=== PATIENT | male | born 1985 | race Caucasian/White ===

== ENCOUNTER 2020-11-11 10:48 | Outpatient (CLI) | payer OTHER, SELFPAY ==
--- NOTE | 2020-11-11 | EST_ITS ---
Patient Info Name: Neptali Fernando Age: 34 years : 1985 Gender: Male Ht: 72 in Wt: 290 lbs BSA: 2.64 m2 HR: 87 bpm BP: 148 / 81 mmHg Heart Rhythm: Sinus Rhythm Exam Date: 11/11/2020 12:08 PM Exam Location: [facility] Stress Patient Status: Outpatient Admit Date: 11/11/2020 Staff Ordering Physician: Jamar, Yee Marinelli [facility] Attending Provider: JamarYee [facility] Exercise Technologist: Trisha Reilly CT Exercise Physician: Tiara Alexander MD Exam Type: CA stress test treadmill Study Info Indications R06.09 - Other forms of dyspnea A treadmill exercise stress test was performed. Summary 1. Sub maximal stress test with the patient reaching only 82% of his maximal predicted heart rate, but no EKG evidence of ischemia at this level of exercise. 2. Exercise-induced chest pressure suggestive of angina. 3. Poor exercise tolerance; the patient exercised for only 6 minutes 34 seconds. 4. Resting hypertension (148/81) with a hypertensive blood pressure response (195/90 mmHg). 5. Consider further cardiac testing (stress Cardiolite? Echo?) If heart disease is clinically suspected. Protocol: [facility] Stress ECG Details Stage: REST Duration (min): 0 min : 52 sec Speed (mph): 0.0 Grade (%): 0 HR (bpm): 83 SBP (mmHg): 148 DBP (mmHg): 81 METS: --- Stage: REST Duration (min): 5 min : 18 sec Speed (mph): 0.0 Grade (%): 0 HR (bpm): 88 SBP (mmHg): 148 DBP (mmHg): 81 METS: --- Stage: STAGE 1 Duration (min): 1 min : 0 sec Speed (mph): 1.7 Grade (%): 10 HR (bpm): 113 SBP (mmHg): 148 DBP (mmHg): 81 METS: --- Stage: STAGE 1 Duration (min): 2 min : 0 sec Speed (mph): 1.7 Grade (%): 10 HR (bpm): 117 SBP (mmHg): 148 DBP (mmHg): 81 METS: --- Stage: STAGE 1 Duration (min): 3 min : 0 sec Speed (mph): 1.7 Grade (%): 10 HR (bpm): 123 SBP (mmHg): 167 DBP (mmHg): 91 METS: --- Stage: STAGE 2 Duration (min): 1 min : 0 sec Speed (mph): 2.5 Grade (%): 12 HR (bpm): 129 SBP (mmHg): 167 DBP (mmHg): 91 METS: --- Stage: STAGE 2 Duration (min): 2 min : 0 sec Speed (mph): 2.5 Grade (%): 12 HR (bpm): 137 SBP (mmHg): 176 DBP (mmHg): 91 METS: --- Stage: STAGE 2 Duration (min): 3 min : 0 sec Speed (mph): 2.5 Grade (%): 12 HR (bpm): 137 SBP (mmHg): 176 DBP (mmHg): 91 METS: --- Stage: STAGE 3 Duration (min): 0 min : 34 sec Speed (mph): 3.4 Grade (%): 14 HR (bpm): 151 SBP (mmHg): 176 DBP (mmHg): 91 METS: --- Stage: RECOVERY Duration (min): 0 min : 25 sec Speed (mph): 0.0 Grade (%): 0 HR (bpm): 124 SBP (mmHg): 195 DBP (mmHg): 90 METS: --- Stage: RECOVERY Duration (min): 1 min : 25 sec Speed (mph): 0.0 Grade (%): 0 HR (bpm): 103 SBP (mmHg): 195 DBP (mmHg): 90 METS: --- Stage: REC
== END 2020-11-11 10:49 | disposition home or self-care (01) ==
PROVIDERS: PCP Family Medicine; Visit Provider Nurse Practitioner Family
DX: R06.09 Other forms of dyspnea (principal)
CPT/HCPCS: 93017

== ENCOUNTER 2020-11-18 07:40 | Outpatient (CLI) | payer OTHER, SELFPAY ==
--- NOTE | 2020-11-18 | ECHO_ITS ---
Patient Info Name: Neptali Fernando Age: 34 years : 1985 Gender: Male Ht: 72 in Wt: 290 lbs BSA: 2.64 m2 HR: 85 bpm BP: 141 / 101 mmHg Heart Rhythm: Sinus Rhythm Technical Quality: Good Exam Date: 11/18/2020 8:14 AM Exam Location: [facility] Patient Status: Outpatient Admit Date: 11/18/2020 Staff Ordering Physician: Jamar, Yee DANIELSON Line Installer Trolley: Dk Lopez, BRYCE, RT Attending Provider: Jamar, Yee DANIELSON Referring Physician: Jamar WHITNEY; Exam Type: CA echo doppler color flow Study Info Indications I20.9 - Angina pectoris, unspecified Complete two-dimensional, color flow and Doppler transthoracic echocardiogram is performed. Strain analysis performed. Summary 1. Complete two-dimensional, color flow and Doppler transthoracic echocardiogram is performed. 2. LV size is at upper limits of normal, normal wall thickness, normal LV systolic function, ejection fraction 55-60%, normal diastolic function. G LS -18%. No significant valvular abnormality on 2D echo and Doppler. Unable to assess RVSP due to inadequate TR jet velocity. Normal sinus rhythm. Left Ventricle Left ventricular chamber dimension is normal. Left ventricular systolic function is normal, estimated at 55-60%. There is no increased left ventricular wall thickness. The left ventricular diastolic function is normal. Right Ventricle Right ventricular chamber dimension is normal. Right ventricular systolic function is normal. Left Atria Left atrial chamber dimension is normal. Right Atria Right atrial chamber dimension is normal. Aortic Valve The aortic valve is normal. There is no aortic valve stenosis. Pulmonic Valve The pulmonic valve is normal. Mitral Valve The mitral valve has normal leaflets. Tricuspid Valve The tricuspid valve leaflets are normal. There is trace tricuspid valve regurgitation. Pericardium/Pleural The pericardium appears normal. Inferior Vena Cava Normal inferior vena cava with >50% collapse upon inspiration consistent with normal right atrial pressure, 8 mmHg. Aorta The aortic root size at the sinus of Valsalva is normal. Left Ventricular Outflow Tract Name Value Normal LVOT 2D LVOT Diameter 2.1 cm LVOT Doppler LVOT Peak Gradient 3 mmHg LVOT Mean Gradient 2 mmHg LVOT VTI 18 cm LVOT VTI/AV VTI Ratio 0.8 LVOT Stroke Volume 63 ml LVOT CO 5.5 l/min LVOT CI 2.1 l/min/m2 Mitral Valve Name Value Normal MV Doppler MV Decel [place] 353 cm/s2 MV PHT 64 ms MV Area (PHT) 3.4 cm2 4.0-5.0 MV D
== END 2020-11-18 07:41 | disposition home or self-care (01) ==
LOC: ANHCARD 07:43
PROVIDERS: PCP Family Medicine; Visit Provider Nurse Practitioner Family
DX: I20.9 Angina pectoris, unspecified (principal)
CPT/HCPCS: 93306

== ENCOUNTER 2020-12-22 13:39 | Emergency (ER) | payer OTHER, SELFPAY ==
[2020-12-22 13:54] VITALS: BP 145/91; PULSE 100; RESP 16; TEMP 37.1; O2SAT 100
--- NOTE | 2020-12-22 14:10 | ED.SKABFB ---
HPI - Skin/Abscess/Foreign Bdy General Chief complaint: Skin/Abscess/Foreign Body Stated complaint: Rash below stomach Time Seen by Provider: 12/22/20 13:57 Source: patient and RN notes reviewed Mode of arrival: ambulatory Limitations: no limitations History of Present Illness HPI narrative: Patient presents today with a 7 to 10-day history of a severely pruritic rash to the right lower abdomen. Rash began after patient wore a pair of pants that were not laundered after purchasing. Patient has been using hydrocortisone cream which helps slightly with itching, but does not help resolve the rash. MD complaint: rash Related Data Allergies Allergy/AdvReac Type Severity Reaction Status Date / Time No Known Allergies Allergy Verified 12/22/20 14:12 Review of Systems Review of Systems: CONSTITUTIONAL: Denies body aches, fever, chills, or sweats. EYES: Denies visual changes, redness, or discharge. ENT: Denies rhinorrhea, congestion, sore throat, or otalgia. CARDIOVASCULAR: Denies chest pain, palpitations, or edema. RESPIRATORY: Denies cough or dyspnea. GASTROINTESTINAL: Denies abdominal pain, nausea, vomiting, or diarrhea. GENITOURINARY: Denies dysuria or hematuria. SKIN: Denies wounds.+ Pruritic rash MUSCULOSKELETAL: Denies back pain, joint pain, or myalgia. NEUROLOGIC: Denies headache, numbness, tingling, or weakness. PSYCH: Denies depression or anxiety. PMFSH Comments At time of signature, I have reviewed and agree with nursing past medical, surgical, social and family history unless otherwise noted. Please see nursing chart for further information. There is no relevant family history pertinent to the presenting complaint Exam Narrative: GENERAL: Well-appearing, well-nourished, and in no acute distress. HEAD: Normocephalic, atraumatic. EYES: EOMI. No redness or drainage. Conjunctivae normal. ENT: Mucous membranes pink and moist. NECK: Normal AROM. CHEST: No respiratory distress. EXTREMITIES: Normal range of motion. No edema. SKIN: Warm, dry. Capillary refill normal. Normal skin turgor. Erythematous maculopapular rash to the right lower abdomen, extending to the right groin and into the right upper leg. NEURO: No focal deficits. Alert and oriented x3. Gait steady. PSYCH: Normal affect. No signs of depression or anxiety. Course Vital Signs Vital signs: Vital Signs Temperature 98.7 F 12/22/20 13:54 Pulse Rate 100 12/22/20 13:54 Respiratory Rate 16 12/22/20 13:54 Blood Pressure 145/91 H 12/22/20 13:54 Pulse Oximetry 100 12/22/20 13:54 Temperature 98.7 F 12/22/20 13:54 Pulse Rate 100 12/22/20 13:54 Respiratory Rate 16 12/22/20 13:54 Blood Pressure 145/91 H 12/22/20 13:54 Pulse Oximetry 100 12/22/20 13:54 Reviewed. Pt has been instructed to follow up with his PCP regarding his elevated blood pressure today. MDM - Skin/Abscess/Foreign Bdy Differential Diagnosis Differential diagnosis: Likely dermatophytosis, urticaria, cellulitis, eczema, insect bites, impetigo and contact dermatitis Critical Care Time Critical Care Time Critical Care Time: No Discharge Plan Discharge Clinical Impression: Contact dermatitis Qualifiers: Contact dermatitis type: unspecified Contact dermatitis trigger: unspecified trigger Qualified Code(s): L25.9 - Unspecified contact dermatitis, unspecified cause Patient Disposition: Home, Self-Care Condition: Stable Instructions: Contact Dermatitis (DC) Additional Instructions: Please take the prednisone as prescribed, starting tomorrow morning. For itching, take an antihistamine such as Benadryl, Zyrtec, Claritin, or Janeth. You may continue the cortisone for itching as well. Follow-up with your doctor in 1 week if symptoms are not improving. Your blood pressure was elevated above 120/80 today at Urgent Care. This puts you above the threshold for follow up. Please schedule a followup visit with your personal physician as soon as possible
== END 2020-12-22 14:20 | disposition home or self-care (01) ==
PROVIDERS: Emergency Provider Nurse Practitioner; PCP Family Medicine
DX: L25.9 Unspecified contact dermatitis, unspecified cause (principal)
CPT/HCPCS: 99213; G0463

== ENCOUNTER 2024-01-12 19:29 | Emergency (ER) | payer OTHER, SELFPAY ==
[2024-01-12 19:39] VITALS: BP 155/97; PULSE 68; RESP 18; TEMP 36.6; O2SAT 99
--- NOTE | 2024-01-12 19:59 | ED.DENTAL ---
HPI - Dental/Oral General Chief complaint: Dental/Oral Stated complaint: infection in the tooth region Time Seen by Provider: 01/12/24 19:55 Source: patient Mode of arrival: ambulatory Limitations: no limitations History of Present Illness HPI Narrative: Neptali is a 38-year-old male patient presenting to the clinic today with complaints of right 2nd lower jaw dental pain x2 months. He reports that is been intermittent for the past 2 months however over the last 4 days he has had constant pain. No fevers or chills. States that he has tried flossing clean his teeth best he can. Does not have dental insurance and has not been able to get in to see a dentist. Related Data Allergies Allergy/AdvReac Type Severity Reaction Status Date / Time No Known Allergies Allergy Verified 01/12/24 19:44 Review of Systems Review of Systems: Pertinent positives per HPI. Patient denies any fever, chills, rash, headache, visual changes, dizziness, cough, runny nose, sore throat, shortness of breath, chest pain, palpitations, nausea, vomiting, diarrhea, constipation, abdominal pain, or any urinary issues. PMFSH Comments At the time of my signature, I reviewed and agree with the nursing past medical, surgical, social, and family history. There is no relevant family history pertinent to the patient complaint. Exam Narrative: General: Well-developed, well nourished, in no apparent distress Head: Normocephalic, atraumatic Eyes: Pupils equally round and reactive to light bilaterally, EOM intact, sclera and conjunctive clear, no discharge, lids normal Ears: TMs intact and clear, ear canals clear, no drainage, grossly hearing normal. Nose: Nares patent, no discharge, no inflammation, no sinus tenderness. Mouth: Oropharynx without lesions or masses, poor dentition, MMM. Dental pain to number 30 with mild swelling/redness Neck: Supple, trachea midline, no enlargement of anterior or posterior cervical nodes, no thyroid masses or goiter palpable. Cardio: Regular rate and rhythm, s1 and s2 normal, no murmur appreciated. Resp: Clear to auscultation bilaterally anteriorly and posteriorly, no rhonchi, rales, wheezing or rubs Course Course Emergency Course: Portions of this record may have been created with voice recognition software. Level of Care: Express Care Visit Vital Signs Vital signs: Vital Signs Temperature 36.6 C 01/12/24 19:39 Pulse Rate 68 01/12/24 19:39 Respiratory Rate 18 01/12/24 19:39 Blood Pressure 155/97 H 01/12/24 19:39 Pulse Oximetry 99 01/12/24 19:39 Oxygen Delivery Room Air 01/12/24 19:39 Temperature 36.6 C 01/12/24 19:39 Pulse Rate 68 01/12/24 19:39 Respiratory Rate 18 01/12/24 19:39 Blood Pressure 155/97 H 01/12/24 19:39 Pulse Oximetry 99 01/12/24 19:39 Oxygen Delivery Room Air 01/12/24 19:39 Vital signs reviewed MDM - Dental/Oral MDM Narrative Medical decision making narrative: At the time of visit patient is resting comfortably on the exam table. Patient appears to be nontoxic. Plan: I suspect patient has a toothache. Prescription for amoxicillin was sent to the pharmacy P Supportive measures were discussed with the patient and they voiced understanding discharge instructions and agrees to treatment plan. Return precautions reviewed Differential Diagnosis Differential diagnosis: Likely gingival abscess, dental caries, toothache, dental abscess, fracture of tooth and aphthous ulcer Discharge Plan Discharge Clinical Impression: Toothache Patient Disposition: Home, Self-Care Condition: Stable Instructions: Antibiotic Form, Toothache (ED) Additional Instructions: Increase fluids and stay well hydrated May apply Orajel to the affected area to help alleviate pain May take 1 g of Tylenol and 800 mg of Motrin every 8 hours. Take amoxicillin as prescribed Follow-up with your dentist as soon as possible Prescriptions: New amoxicillin
== END 2024-01-12 20:06 | disposition home or self-care (01) ==
PROVIDERS: Emergency Provider Nurse Practitioner Family; PCP Family Medicine
DX: K08.89 Other specified disorders of teeth and supporting structures (principal)
CPT/HCPCS: 99213; G0463

== ENCOUNTER 2024-07-02 19:06 | Emergency (ER) | payer OTHER, SELFPAY ==
[2024-07-02 19:22] VITALS: BP 153/93; PULSE 79; RESP 20; TEMP 36.6; O2SAT 99
--- OUTSIDE RECORDS SUMMARY | 2024-07-02 19:22 | XMS_ITS | Data Portability ---
Author Organization [facility], Main Office Address [address] [place] [address] Care Team Providers Care Donor Technician Name Role Phone HAWK PEDRAZA Primary Care Provider [phone] Assessment Encounter Date Assessment Date Assessment LastModified by Organization Details LastModified Time 02/21/2023 02/21/2023 37 yo M with - WT LOSS PROGRAM - POOR CONCENTRAION - HLD (diet controlled), improved - HTG, uncontrolled - SNORING; R/o RADHA - ELEVATED BP - ELEVATED LFTs, resolved - TRIGEMINAL NEURALGIA, Episodic - VIT D DEFICIENCY - OBESITY I - H/O DEPRESSION - EX-SMOKER - STRONG FH OF COLON CA (Early onset) Home sleep study: 12/08/22. US Abdo: 05/02/20. Hepatitis panel: 04/30/20. CXR: 04/24/20. Annual labs: 04/24/20. Wt: 305(04/30/20) - 293(05/28/20) - 280(07/02/20) Wt: 271(11/15/22) - 259(12/27/22) - 249(01/24/23) - 241(02/21/23) D/w pt in detail about his findings, recent labs & imagines and further plan of care. Meds as directed. BP diary education given and call us if any concerns. Diet and exercise explained in detail. Educated about different options for him. F/u with Psych as per schedule. Cont f/u with GI as per schedule. Cont f/u with Ophtho as per schedule. Pt was referred to counsellor in the past and he did not go. HM: Colonoscopy - 2020, polyp ++. Cont f/u with GI as per schedule (3 yrs). Flu - Pt declined. Tdap, Gardasil, Hep A, Hep B - At HD. F/u in 1 month. Lipids in 03/10. Annual labs in 11/08. [email or web address] Not available 02/21/2023 15:18:02 03/24/2023 03/24/2023 37 yo M with - WT LOSS PROGRAM - HLD (diet controlled) - HTG - SNORING; R/o RADHA - ELEVATED BP - ELEVATED LFTs, resolved - TRIGEMINAL NEURALGIA, Episodic - POOR CONCENTRAION - VIT D DEFICIENCY - OBESITY I - H/O DEPRESSION - EX-SMOKER - STRONG FH OF COLON CA (Early onset) Home sleep study: 12/08/22. US Abdo: 05/02/20. Hepatitis panel: 04/30/20. CXR: 04/24/20. Annual labs: 04/24/20. Wt: 305(04/30/20) - 293(05/28/20) - 280(07/02/20) Wt: 271(11/15/22) - 259(12/27/22) - 249(01/24/23) - 241(02/21/23) - 235(03/24/23) D/w pt in detail about his findings, recent labs & imagines and further plan of care. Meds as directed. BP diary education given and call us if any concerns. Diet and exercise explained in detail. Educated about different options for him. F/u with Psych as per schedule. Cont f/u with GI as per schedule. Cont f/u with Ophtho as per schedule. Pt was referred to counsellor in the past and he did not go. HM: Colonoscopy - 2020, polyp ++. Cont f/u with GI as per schedule (3 yrs). Flu - Pt declined. Tdap, Gardasil, Hep A, Hep B - At HD. F/u in 1 month. Annual labs in 11/08. [email or web address] Not available 03/24/2023 12:52:15 05/24/2023 05/24/2023 The patient gave verbal consent using TelePhonic services and the consent is documented in the medical record prior to using the service. The patient has been informed of what a TeleMedicine visit is. Patient is located at home. Provider is located at office. Names and roles of persons in addition to the patient and provider participating in telemedicine services include staff. The patient had a 11 minute TeleMedicine consultation via phone call to discuss the following: [email or web address] Not available 05/24/2023 16:06:28 Plan of Treatment Reminders Order Date Submit Date Provider Last Modified By Organization Details Last Modified Time Details Appointments None recorded. Lab lipid panel, serum 2022 023 [facility] (Lab), [address] [place], [address], 14:54:30 Referral None recorded. Procedures None recorded. Surgeries None recorded. Imaging None recorded. Medication Orders prednisone 10 mg tablet 2023 024 [facility] [address], [address], [address], 4 16:10:12 azithromyci n 250 mg tablet 2023 024 [facility] [address], [address] [place] [address], [address], 4 16:10:13 benzonatate 200 mg capsule 2023 024 [facility] [address], [address], [address], 4 16:26:29 phentermine 15 mg capsule 2022 023 [facility] [address], [address], [address], 3 13:28:33 phentermine 15 mg capsule 2022 023 [facility] [address], [address], [address], 3 15:16:23 Patient TargetsNo targets recorded. Patient Instructions Encounter Date Encounter Id Patient Instructions Last Modified By Organization Details Last Modified Time 02/21/2023 [id number] high cholesterol : care instructions [email or web address] Not available 02/21/2023 15:16:16 03/24/2023 [id number] high cholesterol : care instructions Not available 03/24/2023 12:54:18 05/24/2023 [id number] Due to the COVID-19 (Novel Coronavirus) pandemic, it is within this context (and with the understanding that this method of patient encounter is in the patient s best interest as well as the health and safety of other patients and the public) that telehealth is being provided for this patient encounter rather than a lfaf-cz-etav visit. This patient encounter is appropriate at this time. This patient has been advised of the potential risks and limitations of this mode of treatment (including, but not limited to, the absence of in-person examination) and has agreed to be treated in a remote fashion despite these risks. Any and all of the patient s/patient s family s questions on this issue have been answered, and I have made no promises or guarantees to the patient. The patient has also been advised to contact this office for worsening conditions or problems, and seek emergency medical treatment and/or call 911 if the patient deems either necessary. HPI and/or vitals, if listed, were provided by the patient. Not available 05/24/2023 16:06:00 Reason for Referral None Reported. Results Created Date Observation Date Name Description Value Unit Range Abnormal Flag Note LastModifiedBy Organization Detail LastModifiedTime 02/15/2002/14/2023 TEST NOT PERFO RMED test not performed SEE COMMEN T UNABL E TO PERFO RM LIPID PANEL DUE TO SPECI MEN rec'd in lab was unlab eled. Not Available [facility] (Lab) [address] [place], [address], 02/14/2023 19:43:30 03/21/20 23 03/21/2023 LIPID PANEL cholesterol 165 mg/dL 140-19 9 NIH YANCI NSUS RECOM MENDA TION FOR MARS STERO L: ADULT CHILD LOW RISK: <200 <170 BORDE RLINE : <200- 239 ----- HIGH RISK: >240 >200 Not Available [facility] (Lab) [address] [place], [address], 03/21/2023 14:54:29 03/21/20 23 03/21/2023 LIPID PANEL triglyceride s 122 mg/dL 0-150 NIH YANCI NSUS REPOR T RECOM MENDA TION FOR TRIGL YCERI MATTIE: ADULT CHILD LOW RISK: <150 ----- BODER LINE: 150-1 99 ----- HIGH RISK: >200 ----- Not Available [facility] (Lab) [address] [place], [address], 03/21/2023 14:54:29 03/21/20 23 03/21/2023 LIPID PANEL HDL cholesterol 41 mg/dL 40- Not Available [facility] (Lab) [address] [place], [address], 03/21/2023 14:54:29 03/21/20 23 03/21/2023 LIPID PANEL LDL cholesterol, calculated 100 mg/dL 0-130 NIH YANCI NSUS REPOR T RECOM MENDA TIONS FOR LDL: ADULT CHILD LOW RISK <130 <110 (OPTI MAL LDL) <100 ----- BORDE RLINE : 130-1 59 ----- HIGH RISK: >160 >130 A TRIGL YCERI DE RESUL T >400 INVAL IDATE S THE CALCU LATIO N FOR LDL FRACT IONAT ION - THE LDL RESUL T WILL NOT BE REPOR CHRISTAL. Not Available [facility] (Lab) [address] [place], [address], 03/21/2023 14:54:29 05/14/19 24 12/23/2022 XR, wrist No observ ation record ed. [email or web address] [facility] [address] [place], [address], 05/24/2023 16:07:23 Result Notes None recorded. Problems Name Problem SNOMED Code Status Onset Date Resolution Date Notes Provider Name and Address Organization Details Recorded Time Mixed hyperchole sterolemia and hypertrigl yceridemia 587330718 Active 2020 Not Available [employer] 3 02:38:47 Generalize d headache 668426409 Completed 202004/23/2020 Not Available [facility] 3 02:38:47 Family history of cancer of colon 125644948 Active 2020 Not Available [facility] 3 02:38:48 Trigeminal neuralgia 82170651 Active 2020 Not Available [facility] 3 02:38:48 Bronchitis 93332587 Active 2021 Not Available [facility] 3 02:38:48 Vitamin D deficiency 42590777 Active 2020 Not Available [facility] 3 02:38:48 Depressive disorder 21028528 Active 2020 Not Available [facility] 3 02:38:48 Elevated blood-pres sure reading without diagnosis of hypertensi on 878648814 Active 2020 Not Available [facility] 3 02:38:48 Obesity 034157883 Active 2020 Not Available [facility] 3 02:38:48 Hyperlipid emia 00153850 Active 2020 Not Available [facility] 3 02:38:48 Liver enzymes level above reference range 302332370 Active 2020 Not Available [facility] 3 02:38:48 COVID-19 375380353 Active 2021 Not Available [facility] 3 02:38:48 Ex-smoker 0112906 Active 2020 Not Available [facility] 3 02:38:48 Sleep apnea 50330571 Active 2022 Hawk Pedraza MD [address], [facility] [address], [place], [address] , [facility] [employer] [facility] 3 15:47:09 Hypertrigl yceridemia 133887988 Active 2022 Hawk Pedraza MD [address], [facility] [address], [place], [address] , [facility] [employer] [facility] 3 12:53:24 Poor concentrat ion 00670510 Active 2022 Hawk Pedraza MD [address], [facility] [address], [place], [address] , [facility] 3 12:09:12 History of depression 187562401 Active 2022 Hawk Pedraza MD [address], [address], [place], [address] , [facility] 3 12:16:18 Nasal congestion 98299115 Active 2023 Hawk Pedraza MD [address], [address], [place], [address] , [facility] [employer] [facility] [employer] [facility] 4 16:07:52 Fatigue 88596807 Active 2023 Hawk ePdraza MD [address], [address], [place], [address] , [facility] [employer] [facility] 4 16:07:58 Cough 20850079 Active 2023 Hawk Pedraza MD [address], [address], [place], [address] , [facility] [employer] [facility] [employer] [facility] 4 16:08:05 Notes:[facility] home sleep study 12/08/22 HI = 8, supine HI = 13 Medical History: Depression Trigeminal neuralgia COVID infection Obesity with mild OSHS, HI = 8, 12/08/22 EF 55% Mixed hyperlipidemia Vit D insufficiency Problem Notes None recorded. Procedures Surgical History None recorded. Imaging Results Imaging Date Name Status LastModified by Organiz ation Details LastModified Time 12/23/2022 XR, wrist completed [email or web address] [facility] [address] [place], [address], 05/24/2023 16:07:23 Procedure Notes None recorded. Medical Equipment None Reported. Medications Name Sig Start Date Stop Date Status Note LastModified by Organization Details LastModified Time prednisone 10 mg tablet TAKE 1 TABLET BY MOUTH ONCE DAILY DIRECTED FOR 7 DAYS active Not Available Not Available No t Available azithromyci n 250 mg tablet TAKE 2 TABLETS BY MOUTH ON DAY 1, AND THEN TAKE 1 TABLET BY MOUTH ONCE A DAY ON DAY 2 THROUGH DAY 5 active Not Available Not Available No t Available benzonatate 200 mg capsule TAKE 1 CAPSULE BY MOUTH EVERY 8 HOURS NEEDED FOR 7 DAYS active Not Available Not Available No t Available phentermine 15 mg capsule TAKE 1 CAPSULE BY MOUTH ONCE DAILY IN THE MORNING active Not Available Not Available No t Available ergocalcife rol (vitamin D2) 1,250 mcg (50,000 unit) capsule TAKE 1 CAPSULE BY MOUTH ONCE A WEEK DIRECTED 2022 active Not Available Not Available Not Avai lable methylpredn isolone 4 mg tablets in a dose pack Take 1 dose pk every day by oral route as directed for 6 days. 11/01 completed Not Available Not Available Not Available albuterol sulfate HFA 90 mcg/actuati on aerosol inhaler Inhale 2 puffs every 4-6 hours by inhalatio n route as needed for 10 days. active Not Available Not Available No t Available amoxicillin 875 mg-potassiu m clavulanate 125 mg tablet TAKE 1 TABLET BY MOUTH EVERY 12 HOURS FOR 7 DAYS 03/24 completed Not Available Not Available Not Available Paxlovid 300 mg (150 mg x 2)-100 mg tablets in a dose pack Take 1 dose pk twice a day by oral route as directed for 5 days. 11/01 completed Not Available Not Available Not Available Vitals Date Recorded Body height Provider Name an d Address Organization Details Last Updated DateTime 02/14/2023 182.88 cm [employer] 02/14/2023 17:41:41 Date Recorded Body height Body mass index (BMI) Body weight Body temperature Heart rate Respiratory rate Oxygen saturation Oxygen saturation in Arterial blood by Pulse oximetry Systolic blood pressure Diastolic blood pressure Provider Name and Address Organization Details Last Updated DateTime 3 182.88 cm 32.7 kg/m2 639066. 81 g 98.1 [degF] 78 /min 16 /min 99 % 99 % 134 mm[Hg] 72 mm[Hg] Javier Watson [employer] 3 15:08:10 Date Recorded Body height Body temperature Heart rate Respiratory rate Oxygen saturation Oxygen saturation in Arterial blood by Pulse oximetry Systolic blood pressure Diastolic blood pressure Provider Name and Address Organization Details Last Updated DateTime 3 182.88 cm 98 [degF] 76 /min 16 /min 99 % 99 % 130 mm[Hg] 78 mm[Hg] Javier Watson [place] [facility] [employer] [facility] 12:50:04 Date Recorded Body mass index (BMI) Body weight Provider Name and Address Organization Details Last Updated DateTime 03/24/2023 31.9 kg/m2 875945.21 g Hawk Pedraza MD [address] [facility], [facility] [address], [place], [address], [place] [facility] [employer] [facility] 03/24/2023 12:51:39 Social History Question Answer Notes LastModified by Organizat ion Details LastModified Time Tobacco Smoking Status Never Smoker Not Available [facility] 06/16/2022 02:29:16 In The 14 Days Before Symptom Onset, Have You Had Close Contact With A Laboratory-confirm ed COVID-19 While That Case Was Ill? No [id number] Information not available 06/16/2022 In The 14 Days Before Symptom Onset, Have You Had Close Contact With A Person Who Is Under Investigation For COVID-19 While That Person Was Ill? No [id number] Information not available 06/16/2022 Sex: Unknown Functional Status None recorded. Mental Status None recorded. Family History Nothing Reported. Medical History No medical history recorded. Past Encounters Encounter ID Performer Location Encounter Start Date Encounter Closed Date Diagnosis/Indication Diagnosis SNOMED-CT Code Diagnosis ICD10 Code Diagnosis Note [id number] [address] [address] 07/02/2020 00:00:00 07/02/2020 13:54:[id number] [address] 10/23/2020 00:00:00 10/23/2020 17:35:[id number] [address] 10/29/2020 00:00:00 10/29/2020 11:12:[id number] [address] 03/10/2022 00:00:00 03/10/2022 14:58:54 [id number] Hawk Pedraza MD [address] [address] 11/01/2022 15:29:10 11/01/2022 15:52:50 Adult health examination 006635967 Z00.00 Vitamin D deficiency 347 [address]20 E55.9 Obesity 577120223 E66.9 Sleep apnea 39035459 G47 .30 Elevated blood-pressure reading without diagnosis of hypertension 850195537 R03.0 [id number] Hawk Pedraza MD [address] [address] 11/08/2022 09:15:02 11/08/2022 11:30:08 [id number] Hawk Pedraza MD [address] [address] 11/15/2022 12:43:20 11/15/2022 13:56:51 Vitamin D deficiency 66952731 E55.9 Obesity 484590269 E66.9 Sleep apnea 44262215 G47 .30 Elevated blood-pressure reading without diagnosis of hypertension 168377910 R03.0 Hypertriglyceridemia 302 677912 E78.2 Hyperlipidemia 37977798 E78.5 improved [id number] Hawk Pedraza MD [address] [address] 2022 11:55:41 2022 12:13:18 Obesity 393766058 E66.9 Elevated blood-pressure reading without diagnosis of hypertension 292173029 R03.0 Poor concentration 30172 005 R41.840 History of depression 16 6180727 Z86.59 [id number] Hawk Pedraza MD [address] [address] 01/24/2023 11:55:48 01/24/2023 12:35:33 Obesity 466544346 E66.9 Sleep apnea 38982631 G47 .30 Mild [id number] Hawk Pedraza MD [address] [address] 02/14/2023 10:46:59 02/14/2023 10:54:21 Hyperlipidemia 90718399 E78.5 improved [id number] Hawk Pedraza MD [address] [address] 02/21/2023 14:55:22 02/21/2023 15:23:26 Obesity 317369381 E66.9 Hyperlipidemia 18771579 E78.5 improved Hypertriglyceridemia 302 900237 E78.2 [id number] Hawk Pedraza MD [address] [address] 03/21/2023 09:03:30 03/21/2023 09:38:10 [id number] Hawk Pedraza MD [address] [address] 03/24/2023 12:44:38 03/24/2023 13:42:31 Hyperlipidemia 21014785 E78.5 improved - diet controlled Hypertriglyceridemia 302 516206 E78.2 resolved Obesity 730443417 E66.9 [id number] Hawk Pedraza MD [address] [address] 05/24/2023 16:05:11 05/24/2023 16:27:25 Nasal congestion 59353539 R09.81 Fatigue 01373635 R53.83 Cough 92174241 R05.9 Bronchitis 06747756 J40 Health Concerns Section Related Observation LastModified by Organization Detai ls LastModified Time None Recorded Concern Status LastModified by Organization Details LastModified Time None Recorded Advance Directives Directive None Recorded Payers Encounter Date Sequence Insurance Name Policy Number Policy Oliva Covered Member ID Oliva Member ID Guarantor Name 02/14/2023 1 [employer] (MEDICAID HMO) [id number] Neptali Fernando [id number] Neptali Fernando 02/21/2023 1 [employer] (MEDICAID HM) [id number] Netpali Fernando [id number] Neptali Fernando 03/21/2023 1 [employer] (MEDICAID HMO) [id number] Neptali Fernando [id number] Neptali Fernando 03/24/2023 1 [employer] (MEDICAID HMO) [id number] Neptali Fernando [id number] Neptali Fernando 05/24/2023 1 [employer] (MEDICAID HMO) [id number] 0003 Neptali Fernando [id number] Neptali Fernando Notes Date Note Type Note Provider Name and Address Organization Details Recorded Time 02/21/2023 text/html Pt is here for f/u on his lab and wt loss. Doing overall well. Denies any problem with meds. Happy with his result. So far, 30 lbs wt loss. Pt is not checking BP at home. C/o snoring and pauses at night as per his . Pt got part 1 of sleep study done, awaiting for part 2. Hawk Pedraza MD [address] [facility], [place], [address], [employer] 02/21/2023 15:20:50 03/24/2023 text/html Pt is here for f/u on his lab and wt loss. Doing overall well. Denies any problem with meds. Happy with his result. So far, 36 lbs wt loss. Pt is not checking BP at home. C/o snoring and pauses at night as per his . Pt got part 1 of sleep study done, awaiting for part 2. Hawk Pedraza MD [address] [facility], [place], [address], [employer] 03/24/2023 12:56:50 05/24/2023 text/html Telephone visit.ACV. C/o cough, congestion, greenish sputum, fatigue, chills for last 10 days. Pt's whole family is sick for last few weeks. His daughter started it and now all members are sick. Hawk Pedraza MD [address] [facility], [place], [address], [employer] 05/24/2023 16:26:48
--- OUTSIDE RECORDS SUMMARY | 2024-07-02 19:22 | XMS_ITS | Clinical Summary ---
Author Organization [facility] Address [address] [place] [address] Care Team Providers Care Remediation Bioanal[employer] Consultant Name Role Phone Hawk Pedraza MD Primary Care Provider [phone] Allergies No known active allergies Medications ibuprofen 200 MG tablet Take 3 tablets (600 mg total) by mouth every 6 (six) hours as needed for Pain. 20 tablet 10/24/2020 Active Active Problems No known active problems Social History Tobacco Use Types Packs/Day Years Used Date Smoking Tobacco: Never Assessed Sex and Gender Information Value Date Recorded Sex Assigned at Not on file Legal Sex Male 8:37 PM CDT Gender Identity Not on file Sexual Orientation Not on file Last Filed Vital Signs Vital Sign Reading Time Taken Comments Blood Pressure 159/92 10/24/2020 6:00 PM CDT Pulse 82 10/24/2020 6:00 PM CDT Temperature 36.8 C (98.3 F) 10/24/2020 4:42 PM CDT Respiratory Rate 19 10/24/2020 6:00 PM CDT Oxygen Saturation 98% 10/24/2020 6:00 PM CDT Inhaled Oxygen Concentration - - Weight 131.5 kg (290 lb) 10/24/2020 4:42 PM CDT Height 182.9 cm (6') 10/24/2020 4:42 PM CDT Body Mass Index 39.33 10/24/2020 4:42 PM CDT Plan of Treatment Health Maintenance Due Date Last Done Comments Annual Physical 12/26/1986 Hepatitis C 12/26/2001 DTaP, Tdap and Td Vaccines ( 1 - Tdap) 12/26/2002 Hepatitis B Vaccines (1 of 3 - 19+ 3-dose series) 12/26/2002 COVID-19 Vaccine ( - 2023-2 5 season) 2023 Influenza Adult (#1) 2024 HPV Vaccines Aged Out No longer eligi ble based on patient's age to complete this topic Meningococcal B Vaccine Aged Out No l onger eligible based on patient's age to complete this topic Meningococcal Vaccine Aged Out No timothy lilo eligible based on patient's age to complete this topic Pneumococcal Vaccine: Pediat rics (0 to 5 Years) and At-Risk Patients (6 to 64 Years) Aged Out No longer eligible b ased on patient's age to complete this topic RSV Immunizations Under 20 Months Aged Out No longer eligible based on patient's age to complete this topic Insurance Care Teams Remediation Bioanal[employer] Consultant Relationship Specialty Start Date End Date Hawk Pedraza MD PCP - General FAMILY PRACTICE 10/24/20
--- OUTSIDE RECORDS SUMMARY | 2024-07-02 19:22 | XMS_ITS | Clinical Summary ---
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 Gender Identity Not on file Sexual Orientation Not on file Plan of Treatment Health Maintenance Due Date Last Done Comments Hepatitis C Virus (HCV) Screening 1983 TdaP Immunization 1983 Hepatitis B Immunization (1 of 3 - 19+ 3-dose series) 12/26/2002 Influenza Immunization (#1) 2023 SARS-COV-2 Immunization ( season) 2023 Respiratory Syncytial Virus (RSV) Immunization (Adult) (1 - 1-dose 75+ series) 12/26/2058 Meningococcal Immunization (ACWY) Aged Out No longer eligible based on patient's age to complete this topic Pneumococcal Immunization Combined Aged Out No longer eligible based on patient's age to complete this topic Rotavirus Immunization Aged Out No lo nger eligible based on patient's age to complete this topic
--- NOTE | 2024-07-02 19:25 | ED.GENADULT ---
HPI - General Adult General Chief complaint: Abdominal Pain Stated complaint: strain muscle Time Seen by Provider: 07/02/24 19:25 Source: patient, RN notes reviewed and old records reviewed Mode of arrival: ambulatory Limitations: no limitations History of Present Illness HPI narrative: 38-year-old male presents to [facility] with complaints of abdominal wall discomfort after lifting a dog on Tuesday. States Tuesday he felt fine, had lifted another dog yesterday when he felt the pain again. Patient states that he again he lifted his own dog this morning, had a sharp stabbing pain. Unable to reproduce pain at this time. No bulging, redness, ecchymosis noted. Related Data Allergies Allergy/AdvReac Type Severity Reaction Status Date / Time No Known Allergies Allergy Verified 07/02/24 19:29 Review of Systems Review of Systems: All systems reviewed & are unremarkable except as noted in HPI and below Constitutional: Constitutional: Reports no additional constitutional complaints ENT: Reports system reviewed and no additional complaints, except as documented Cardiovascular: Cardiovascular: Reports no additional cardiovascular complaints, Denies chest pain and Denies dyspnea Respiratory: Respiratory: Reports no additional respiratory complaints, Denies chest congestion, Denies cough and Denies dyspnea Gastrointestinal: Gastrointestinal: Reports as per HPI Musculoskeletal: Musculoskeletal: Reports no additional musculoskeletal complaints Integumentary/Breasts: Skin/Breast: Reports system reviewed and no additional complaints, except as docu PMFSH Comments At the time of my signature, I reviewed and agree with the nursing past medical, surgical, social, and family history. There is no relevant family history pertinent to the patient complaint. Exam Const: General: cooperative, healthy appearing, comfortable, no acute distress, well developed, alert and well nourished Nutritional Appearance: well nourished and obese Orientation/consciousness: patient oriented x3 Limitations: no limitations HENMT: Head: normal to inspection Eyes: General: appearance normal, both eyes and all related structures Alignment and Position: alignment normal Neck: Neck: normal visual inspection, full ROM, no lymphadenopathy and no meningeal signs Chest: Chest palpation & inspection: normal inspection of the chest Resp: Effort & Inspection: normal respiratory effort and able to speak in complete sentences Auscultation: clear to auscultation bilaterally, no crackles, no rales, no rhonchi and no wheezes Cardio: Rate: regular rate GI: GI Palp: No abdominal tenderness, Yes Soft to palpation, No Tenderness to palpation present (GI), No Guarding due to palpation present (GI), No Rigid due to palpation, No Splenomegaly present and No Hernia present Auscultation: normal bowel sounds Skin: General skin exam: normal color and no rashes or lesions noted Neuro: General: patient oriented x3, gait normal, moves all extremities and no meningeal signs Cognition (Neuro): normal cognition Speech: normal speech Gait exam (Neuro): Normal gait present Extrem: General: normal to inspection, full ROM, capillary refill normal and normal gait Psych: Appearance: grossly normal and well kempt Mental Status: mental status grossly normal Speech and movement: Normal speech and movement present and Clear speech present Affect: normal affect Attitude: cooperative Course Course Level of Care: Express Care Visit Vital Signs Vital signs: Vital Signs Temperature 97.9 F 07/02/24 19:22 Pulse Rate 79 07/02/24 19:22 Respiratory Rate 20 07/02/24 19:22 Blood Pressure 153/93 H 07/02/24 19:22 Pulse Oximetry 99 07/02/24 19:22 Oxygen Delivery Room Air 07/02/24 19:22 Temperature 97.9 F 07/02/24 19:22 Pulse Rate 79 07/02/24 19:22 Respiratory Rate 20 07/02/24 19:22 Blood Pressure 153/93 H 07/02/24 19:22 Pulse Oximetry 99 07/02/24 19:22 Oxygen Delivery Room Air 07/02/24 19:22 Reviewed Medical Decision Making MDM Narrative Medical decision making narrative: Patient sitting comfortably in exam room. Nontoxic, vitals stable. Patient in no acute distress Patient presents for above abdominal wall pain after lifting a heavy dog. No redness, ecchymosis. No herniated areas noted. Unable to reproduce pain with palpation Normal bowel sounds Patient appropriate for outpatient treatment with close follow-up, discussed in great detail signs and symptoms proceed to the emergency room Discharge instructions reviewed with patient, as well as provided in writing per nursing staff. The instructions also include specific and strict return/GO TO THE ER as well as f/u information. All questions have been answered, and the patient deny any further questions with discharge and discharge plan. Some parts of this dictation were generated by voice recognition software and may contain typographical and/or grammatical inaccuracies. Differential Diagnosis Differential Diagnosis: Hernia, muscle strain, sprain, acute Medical Records Medical records reviewed: Yes I reviewed the external patient's medical records. Vital Signs Vital Signs: Vital Signs Temperature 97.9 F 07/02/24 19:22 Pulse Rate 79 07/02/24 19:22 Respiratory Rate 20 07/02/24 19:22 Blood Pressure 153/93 H 07/02/24 19:22 Pulse Oximetry 99 07/02/24 19:22 Oxygen Delivery Room Air 07/02/24 19:22 Temperature 97.9 F 07/02/24 19:22 Pulse Rate 79 07/02/24 19:22 Respiratory Rate 20 07/02/24 19:22 Blood Pressure 153/93 H 07/02/24 19:22 Pulse Oximetry 99 07/02/24 19:22 Oxygen Delivery Room Air 07/02/24 19:22 Reviewed Lab Data Lab results reviewed: Yes I reviewed the patient's lab results. Labs: Reviewed Critical Care Time Critical Care Time Critical Care Time: No Discharge Plan Discharge Clinical Impression: Abdominal wall pain Patient Disposition: Home, Self-Care Condition: Stable Instructions: Antibiotic Form, Abdominal Pain (ED) Additional Instructions: Today your blood pressure was 153/93. Is recommended you follow-up with your primary care provider within 2 weeks to have this rechecked Follow-up with your primary care provider as soon as possible to have the abdominal pain followed up on If your pain gets worse or you develop a bulge, redness or any new concerns please proceed to the nearest emergency room Patient Language: Turkish Prescriptions: New baclofen 10 mg tablet 10 mg PO TID PRN (Reason: muscle pain) Qty: 7 0RF No Action amoxicillin 875 mg tablet 875 mg PO Q12H 10 Days Qty: 20 0RF Follow-up/Referrals: Milo,MD Hawk [Primary Care Provider] - 3 Days (express care follow up Abdominal wall discomfort Blood pressure check, 153/93) Stand Alone Forms: Work/School Release IP Time of Disposition: 19:38
== END 2024-07-02 19:40 | disposition home or self-care (01) ==
PROVIDERS: Emergency Provider Nurse Practitioner; PCP Family Medicine
DX: R10.9 Unspecified abdominal pain (principal); Z86.16 Personal history of COVID-19
CPT/HCPCS: 99213; G0463